=== PATIENT | female | born 1945 | race Two or more races ===

== ENCOUNTER 2019-04-09 23:04 | Emergency (ER) | payer OTHER ==
[~2019-04-09] VITALS: Ht 175.3 cm; Wt 104.8 kg
[2019-04-10] MEDS ORDERED: NORFLEX100MG PO (06:53)
[2019-04-10] MEDS ORDERED: NAPROXEN500 MG PO (06:53)
== END 2019-04-10 08:02 | disposition home or self-care (01) ==
LOC: ER 23:04
DX: R07.89 Other chest pain (principal); M62.838 Other muscle spasm

== ENCOUNTER 2023-02-16 10:56 | Emergency (ER) | payer OTHER ==
[~2023-02-16] VITALS: Ht 175.3 cm; Wt 108.0 kg
[~2023-02-16 10:56] MED LIST: NAPROXEN500 MG PO; NORFLEX100MG PO
[2023-02-16 15:11] LABS: HEMATOCRIT 42.8 % (36.0-45.00); HEMOGLOBIN 14.4 g/dL (12.0-15.00); MEAN CELL VOLUME 88.2 fL (80.00-100.00); MEAN CORPUSCULAR HEMOGLOBIN 29.7 pg (27.00-32.0); MEAN CORPUSCULAR HGB CONC 33.7 g/dl (32.0-36.0); PLATELET COUNT 211 K/uL (150-450); RED BLOOD COUNT 4.85 M/uL (4.00-6.00); RED CELL DISTRIBUTION WIDTH 14.9 % (11.5-14.5)
[2023-02-16] MEDS ORDERED: TUSSIN DM SYRU118 ML PO (16:26)
[2023-02-16] MEDS ORDERED: MEDROLPACK PO (16:26)
[2023-02-16] MEDS ORDERED: PAXLOVID 150-11 EACH PO (16:26)
== END 2023-02-16 17:05 | disposition home or self-care (01) ==
LOC: ER → EDBD 11:19 → ER 17:05
PROVIDERS: Nurse Practitioner Family
DX: U07.1 COVID-19 (principal)
CPT/HCPCS: 36415; 96372; 99284; J1885

== ENCOUNTER 2024-02-18 16:45 | Emergency (ER) | payer OTHER ==
[~2024-02-18] VITALS: Ht 175.3 cm; Wt 108.9 kg
[~2024-02-18 16:45] MED LIST changes: +MEDROLPACK PO; +PAXLOVID 150-11 EACH PO; +TUSSIN DM SYRU118 ML PO
[2024-02-18] MEDS ORDERED: METOPROLOL SUCC25 MG PO (17:02)
[2024-02-18] MEDS ORDERED: SIMVASTATIN20 MG PO (17:02)
[2024-02-18 17:03] VITALS: BP 150/80; O2SAT 99
[2024-02-18] MEDS ORDERED: DEXAMETHASONE SODIUM PHOSPHATE 4 MG/ML VIAL IM ONE (17:15)
[2024-02-18] MEDS ORDERED: ORPHENADRINE CITRATE 30 MG/ML AMPUL IM ONE (17:15)
[2024-02-18] MEDS ORDERED: ACETAMINOPHEN 500 MG GEL..CAP PO ONE (17:15)
[2024-02-18 17:40] LABS: HEMATOCRIT 38.2 % (36.0-45.00); HEMOGLOBIN 12.7 g/dL (12.0-15.00); MEAN CELL VOLUME 89.9 fL (80.00-100.00); MEAN CORPUSCULAR HEMOGLOBIN 29.9 pg (27.00-32.0); MEAN CORPUSCULAR HGB CONC 33.3 g/dl (32.0-36.0); PLATELET COUNT 245 K/uL (150-450); RED BLOOD COUNT 4.25 M/uL (4.00-6.00); RED CELL DISTRIBUTION WIDTH 14.8 % (11.5-14.5)
[2024-02-18 18:06] LABS: CREATININE SERUM 0.88 mg/dL (0.55-1.02); GFR 61.98; POTASSIUM 4.12 mEq/L (3.5-5.1)
== END 2024-02-18 22:34 | disposition home or self-care (01) ==
LOC: ER 16:45
PROVIDERS: Emergency Medicine
DX: R53.81 Other malaise (principal); R07.89 Other chest pain; M62.838 Other muscle spasm
CPT/HCPCS: 36415; 70450; 71046; 96372; 99284; J1100; J2360

== ENCOUNTER 2024-04-03 15:30 | Emergency (ER) | payer OTHER ==
[~2024-04-03] VITALS: Ht 175.3 cm; Wt 90.7 kg
[~2024-04-03 15:30] MED LIST changes: +METOPROLOL SUCC25 MG PO; +SIMVASTATIN20 MG PO
[2024-04-03] MEDS ORDERED: CEFTRIAXONE SODIUM 1,000 MG VIAL IM STA (16:25)
[2024-04-03] MEDS ORDERED: CEFTRIAXONE SODIUM 1,000 MG VIAL ONE (16:34)
[2024-04-03 17:12] LABS: HEMATOCRIT 39.4 % (36.0-45.00); HEMOGLOBIN 12.9 g/dL (12.0-15.00); MEAN CELL VOLUME 89.5 fL (80.00-100.00); MEAN CORPUSCULAR HEMOGLOBIN 29.3 pg (27.00-32.0); MEAN CORPUSCULAR HGB CONC 32.7 g/dl (32.0-36.0); PLATELET COUNT 190 K/uL (150-450); RED BLOOD COUNT 4.41 M/uL (4.00-6.00)
[2024-04-03 17:29] LABS: CREATININE SERUM 0.88 mg/dL (0.55-1.02); GFR 61.98; POTASSIUM 4.4 mEq/L (3.5-5.1)
== END 2024-04-03 18:37 | disposition home or self-care (01) ==
LOC: ER 15:32
PROVIDERS: General Practice
DX: J06.9 Acute upper respiratory infection, unspecified (principal)
CPT/HCPCS: 36415; 96372; 99282; J0696